=== PATIENT | female | born 1980 | race Caucasian/White ===

== ENCOUNTER 2016-12-18 15:01 | Emergency (ER) | payer OTHER ==
[~2016-12-18 15:01] MED LIST: ATEN50 PO; DSS PO; FLORASTOR250 MG PO; IBU-200200 MG PO; IRON325 MG PO; KLONOPIN; LEVAQUIN750 MG PO; LISINOPRIL PO; NORCO1 TA1 PO; PRILO PO; PRILOSEC PO; PRIN20 PO; TENORETIC1 TAB PO
[2016-12-18 15:36] LABS: BASOPHILS 0.4 %; BASOPHILS ABSOLUTE 0.04 10/3/uL (0.0-0.16); EOSINOPHILS 1.1 %; EOSINOPHILS ABSOLUTE 0.12 10/3/uL (0.0-0.53); ER CBC TAT 0 Hrs 07 Mins; HEMATOCRIT 38.7 % (36.0-48.0); HEMOGLOBIN 12.3 g/dL (12.0-16.0); IMMATURE GRANULOCYTES 0.3 %; IMMATURE GRANULOCYTES ABSOLUTE 0.03 10/3/uL (0.0-0.11); LYMPHOCYTES 20.5 %; MEAN CORPUS HGB CONC 31.8 g/dL (32.0-36.0); MEAN CORPUSCULAR HEMOGLOB 26.3 pg (26.0-34.0); MEAN CORPUSCULAR VOLUME 82.9 fL (80-100); MEAN PLATELET VOLUME 9.3 fL (9.2-13.0); MONOCYTES 5.3 %; MONOCYTES ABSOLUTE 0.59 10/3/uL (0.21-1.20); NEUTROPHILS 72.4 %; NEUTROPHILS ABSOLUTE 8.12 10/3/uL (2.02-8.40); PLATELET COUNT 315 10/3/uL (150-400); RBC DISTRIBUTION WIDTH 13.6 % (12.0-16.0); RED CELL COUNT 4.67 10/6/uL (4.0-5.6); WHITE BLOOD CELLS 11.2 10/3/uL (4.5-10.5)
[2016-12-18 15:37] LABS: MANUAL DIFF NO %
[2016-12-18 15:46] LABS: BUN (BLOOD UREA NITROGEN) 9 MG/DL (6-23); CHLORIDE, SERUM 107 MMOL/L (96-112); CO2 (CARBON DIOXIDE) 27 MMOL/L (24-34); CREATININE 0.68 MG/DL (0.55-1.02); GFR AFRICAN AMERICAN 130 ML/MIN (>=60); GFR NON AFRICAN AMERICAN 112 ML/MIN (>=60); GLUCOSE, SERUM 102 MG/DL (60-99); SODIUM, SERUM 138 MMOL/L (135-148)
[2016-12-18 15:47] LABS: CALCIUM, SERUM 9.2 MG/DL (8.5-10.4); POTASSIUM, SERUM 4.2 MMOL/L (3.5-5.3)
== END 2016-12-18 18:30 | disposition home or self-care (01) ==
LOC: ER 15:01
PROVIDERS: Nurse Practitioner
DX: S13.4XXA Sprain of ligaments of cervical spine, initial encounter (principal); S39.011A Strain of muscle, fascia and tendon of abdomen, initial encounter; S60.221A Contusion of right hand, initial encounter; I10 Essential (primary) hypertension; Z88.5 Allergy status to narcotic agent; Z79.899 Other long term (current) drug therapy; V29.00XA Motorcycle driver injured in collision with unspecified motor vehicles in nontraffic accident, initial encounter
CPT/HCPCS: 72125; 73130-RT; 74177; 80048; 85025; 96374; 96375; 99285; J1170; J2405; J2800; Q9967